=== PATIENT | female | born 1965 | race Two or more races ===

== ENCOUNTER 2021-10-28 20:03 | Emergency (ER) | payer OTHER ==
[~2021-10-28] VITALS: Ht 172.7 cm; Wt 86.2 kg
[2021-10-28] MEDS ORDERED: ZYRTEC10 MG PO (21:36)
[2021-10-28] MEDS ORDERED: DUI500 PO (21:36)
[2021-10-28] MEDS ORDERED: TUSNEL LIQUID178 ML PO (21:36)
== END 2021-10-28 21:41 | disposition home or self-care (01) ==
LOC: ER 20:03
DX: B34.9 Viral infection, unspecified (principal); Z20.822 Contact with and (suspected) exposure to COVID-19

== ENCOUNTER 2021-12-27 20:42 | Emergency (ER) | payer OTHER ==
[~2021-12-27] VITALS: Ht 172.7 cm; Wt 86.2 kg
[~2021-12-27 20:42] MED LIST: DUI500 PO; TUSNEL LIQUID178 ML PO; ZYRTEC10 MG PO
[2021-12-27] MEDS ORDERED: ZITHROMAX500 MG PO (23:58)
[2021-12-27] MEDS ORDERED: TUSNEL LIQUID178 ML PO (23:58)
[2021-12-27] MEDS ORDERED: MEDROLPACK PO (23:58)
[2021-12-27] MEDS ORDERED: DOLOGEN CAPLET1 EACH PO (23:58)
[2021-12-27] MEDS ORDERED: PROAIR HFA8.5 GM IH (23:58)
== END 2021-12-28 02:05 | disposition home or self-care (01) ==
LOC: ER 20:42
DX: U07.1 COVID-19 (principal); B96.0 Mycoplasma pneumoniae [M. pneumoniae] as the cause of diseases classified elsewhere; R53.81 Other malaise

== ENCOUNTER 2022-10-20 10:44 | Emergency (ER) | payer OTHER ==
[~2022-10-20] VITALS: Ht 172.7 cm; Wt 86.2 kg
[~2022-10-20 10:44] MED LIST changes: +DOLOGEN CAPLET1 EACH PO; +MEDROLPACK PO; +PROAIR HFA8.5 GM IH; +ZITHROMAX500 MG PO
[2022-10-20] MEDS ORDERED: PEPCID AC20 MG PO (13:10)
== END 2022-10-20 13:18 | disposition home or self-care (01) ==
LOC: ER 10:44
DX: R19.7 Diarrhea, unspecified (principal); Z88.8 Allergy status to other drugs, medicaments and biological substances

== ENCOUNTER 2023-03-13 00:06 | Emergency (ER) | payer OTHER ==
[~2023-03-13] VITALS: Ht 172.7 cm; Wt 88.5 kg
[~2023-03-13 00:06] MED LIST changes: +PEPCID AC20 MG PO
[2023-03-13] MEDS ORDERED: CEPHALEXIN500 MG PO (03:42)
== END 2023-03-13 03:47 ==
LOC: ER 00:06
DX: S61.412A Laceration without foreign body of left hand, initial encounter (principal); W26.0XXA Contact with knife, initial encounter; Y93.G3 Activity, cooking and baking; Y92.010 Kitchen of single-family (private) house as the place of occurrence of the external cause; Y99.9 Unspecified external cause status; Z88.8 Allergy status to other drugs, medicaments and biological substances
CPT/HCPCS: 12002; 90471; 90714; 99283; J1670

== ENCOUNTER 2025-01-14 15:18 | Emergency (ER) | payer OTHER ==
[~2025-01-14] VITALS: Ht 172.7 cm; Wt 88.0 kg
[~2025-01-14 15:18] MED LIST changes: +CEPHALEXIN500 MG PO
[2025-01-14] MEDS ORDERED: 0.9 % SODIUM CHLORIDE 1,000 ML IV STA (16:53)
[2025-01-14] MEDS ORDERED: ONDANSETRON HCL 2 MG/ML VIAL IV ONE (17:00)
[2025-01-14] MEDS ORDERED: ACETAMINOPHEN 500 MG GEL..CAP PO ONE ×2 (17:00→17:01)
[2025-01-14] MEDS ORDERED: FAMOTIDINE/PF 20 MG/2 ML VIAL IV ONE (17:00)
[2025-01-14] MEDS ORDERED: DICYCLOMINE HCL 20 MG TABLET PO ONE (17:00)
[2025-01-14] MEDS ORDERED: ONDANSETRON HCL 2 MG/ML VIAL ONE (17:01)
[2025-01-14] MEDS ORDERED: FAMOTIDINE/PF 20 MG/2 ML VIAL ONE (17:01)
[2025-01-14] MEDS ORDERED: DICYCLOMINE HCL 10 MG CAPSULE PO ONE (17:01)
[2025-01-14 17:32] LABS: BASO % 0.3 % (0.1-1.2); EOS # 0.01 (0.04-0.54); EOS % 0.1 % (0.7-7.0); HEMATOCRIT 39.8 % (34.1-44.9); HEMOGLOBIN 13.2 g/dL (11.2-15.7); LYMPH # 0.83 (1.18-3.74); LYMPH % 11.2 % (19.3-53.1); MEAN CORPUSCULAR HEMOGLOBIN 26.9 pg (25.6-32.2); MONO # 0.19 (0.24-0.82); MONO % 2.6 % (4.7-12.5); NEUT # 6.31 (1.56-6.13); PLATELET COUNT 176 K/uL (163-369); RED CELL DISTRIBUTION WIDTH 14.4 % (11.6-14.4)
[2025-01-14 17:38] LABS: COVID-19 AG NEGATIVE (NEGATIVE)
[2025-01-14 17:42] LABS: INFLUENZA A AG NEGATIVE (NEGATIVE); INFLUENZA B AG NEGATIVE (NEGATIVE)
[2025-01-14 18:06] LABS: ALBUMIN 3.6 gm/dL (3.4-5.0); BILIRUBIN TOTAL 0.44 mg/dL (0.3-1.2); CALCIUM 8.7 mg/dL (8.5-10.1); CREATININE SERUM 0.54 mg/dL (0.55-1.02); GFR 115.55; POTASSIUM 3.51 mEq/L (3.5-5.1); TOTAL PROTEIN 7.6 gm/dL (6.4-8.2)
== END 2025-01-15 00:51 | disposition home or self-care (01) ==
LOC: ER 15:26
PROVIDERS: Emergency Medicine
DX: K52.9 Noninfective gastroenteritis and colitis, unspecified (principal); Z20.822 Contact with and (suspected) exposure to COVID-19; Z88.8 Allergy status to other drugs, medicaments and biological substances